=== PATIENT | male | born 1975 | race Caucasian/White ===

== ENCOUNTER 2016-11-26 12:21 | Emergency (ER) | payer OTHER ==
--- NOTE | 2016-11-26 14:40 | DIAGNOSTIC IMAGING REPORT ---
PROCEDURE: XR RIBS UNILAT W/PA CHEST-LT INDICATION: PAIN TECHNIQUE: Two views of the left ribs with single PA view chest. COMPARISON: None. FINDINGS: LEFT RIBS: There is a fracture of the left seventh rib. No suspicious rib lesions. CHEST: Normal cardiomediastinal contour. Clear lungs without pleural effusion, pneumothorax, or contusion. The other visible osseous structures are intact. IMPRESSION: 1. Fracture of the left seventh rib. 2. No pneumothorax. 3. Results were called to Toshia Brewster at 02:40 p.m.
--- NOTE | 2016-11-26 14:47 | ED NURSING NOTES ---
Clinical Report - Nurses [facility] [address] [place] [address] 11/26/2016 12:22 Patient: DILEEP JIMENEZ TRIAGE Triage time 12:31. Acuity: LEVEL 5. Chief Complaint: (fractured rib from coughing, was seen at [facility], pt states they wouldn't give him pain medicine for it). Alert. --12:37 Sona Patel R.N. 12:31 11/26/16. BP: 147/99. HR: 99. RR: 18. O2 saturation: 99%. Temp: 98.1 F. Pain level now: 06/13. --12:37 Sona Patel R.N. Weight: 86.1 kg stated. Height/Length: 67 inches Per Patient. BMI: 29.8. --12:33 Sona Patel R.N. Medications Aubagio Oral (Tablet 14 mg) 1 tablet, day. CarBAMazepine Oral 600 mg, 2x a day. --12:34 Sona Patel R.N. Cymbalta Oral 90mg, Daily. Lyrica Oral (Capsule 300 mg) 1 capsule, daily. OLANZapine Oral 15 mg, daily. PriLOSEC Oral 20 mg, daily. --12:34 Sona Patel R.N. Allergies PredniSONE. Vicodin.(angioedema) --12:34 Sona Patel R.N. History Arrived by private vehicle. Primary physician (none now, pt states he won't go back to [facility] ). This occurred (3 - 4 days ago). 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 PAST MEDICAL HX: Tetanus status: up-to-date. SOCIAL HX: Light tobacco smoker (cigarette)- less than 1/2 a pack per day. History of drug use: marijuana. No alcohol use. SELF HARM ASSESSMENT: A self harm assessment was performed. The patient answered "yes" to the question "Do you have thoughts of harming or killing yourself?". (if pain is not relieved, pt states he will kill himself to not be in pain). FUNCTIONAL ASSESSMENT: Functional assessment: no impairments noted. LEARNING NEEDS ASSESSMENT: The learning needs assessment revealed no barriers. --12:37 Sona Patel R.N. PROBLEMS: Hemorrhoids. Rectal Bleed. Suicide Attempt. Multiple Sclerosis. Seizure Disorder. Vision Problems. Anxiety Reaction. Chronic Headache. Headache. Dental Pain. Mental Illness. Vertigo. Depression. Suicidal Ideation. Substance Abuse. PTSD. Bipolar Disorder. ADHD - Attention Deficit Hyperactivity Disorder. TMJ Syndrome. Back Pain. Neck Pain. --12:35 Sona Patel R.N. Adverse Drug Reaction [RuleOut]. --12:35 Sona Patel R.N. ADDITIONAL SURGERIES: Appendectomy. Cholecystectomy. Knee Surgery. Vasectomy. --12:35 Sona Patel R.N. Interventions ID band on patient. To room. --12:37 Sona Patel R.N. PHYSICAL ASSESSMENT 12:38 11/26/16. GENERAL / NEURO / PSYCH: Alert. Oriented X 4. --12:38 Sona Patel R.N. GENERAL / NEURO / PSYCH: Appears anxious. --12:39 Sona Patel R.N. NURSING PROGRESS NOTES 12:38 11/26/16. Patient identifiers checked. Call light placed in reach. Bed placed in lowest position. Patient ready for evaluation. --12:38 Sona Patel R.N. 13:56 11/26/2016 Toradol (Ketorolac Tromethamine) IM 60 mg given. Given in the left gluteus betsy. Confirmed 5 rights. --14:06 Sona Patel R.N. Patient walked to radiology with [employer]. --14:06 Sona Patel R.N. DISPOSITION / DISCHARGE Departure time: 1600. Condition at departure: improved. No learning barriers present. Discharge instructions provided and reviewed with the patient. Reviewed medication(s) information. Prescription(s) given to the patient. Reviewed referral to family practice for followup. Verbalized understanding. Written instructions provided. The patient was discharged home. He left the Emergency Department ambulatory and via private vehicle. --16:40 Sona Patel R.N. 16:00 11/26/16. BP: 138/90. HR: 81. RR: 18. O2 saturation: 98%. Pain level now: 12/11. --16:40 Sona Patel R.N. Locked/Released at 11/26/2016 16:40 by Sona Patel R.N.
--- NOTE | 2016-11-26 14:47 | ED ORDER SUMMARY ---
..... Patient: DILEEP JIMENEZ OrderSheet [facility] VisitID: [id number] [address] [place] [address] 41y, M Registration Date/Time: 11/26/2016 ORDER SHEET Weight: 86.1 kg (stated) Allergies: PredniSONE, Vicodin GENERAL ORDERS: Ribs Unilat w PA Chest Left Urgent (13:55 11/26/2016 HBivens A.R.N.P.) (Ack 14:01 Adolfo) (14:06 LSullivan R.N.) MEDICATION ORDERS: Toradol IM 60 mg (NOW) (13:55 11/26/2016 HBivens A.R.N.P.) (14:06 LSullivan R.N.) IV FLUIDS: ORDER SHEET NOTES: [Electronically signed by Toshia BrewsterRVeronicaN.PVeronica (16:33 11/26/2016)] [Electronically signed by Sona Patel R.N. (16:40 11/26/2016)] [Electronically locked/signed by Sona Patel R.N. (16:40 11/26/2016)]
--- NOTE | 2016-11-26 14:47 | ED ORDER SUMMARY ---
..... Patient: DILEEP JIMENEZ OrderSheet [facility] VisitID: [id number] [address] [place] [address] 41y, M Registration Date/Time: 11/26/2016 ORDER SHEET Weight: 86.1 kg (stated) Allergies: PredniSONE, Vicodin GENERAL ORDERS: Ribs Unilat w PA Chest Left Urgent (13:55 11/26/2016 HBivens A.R.N.P.) (Ack 14:01 Adolfo) (14:06 LSullivan R.N.) MEDICATION ORDERS: Toradol IM 60 mg (NOW) (13:55 11/26/2016 HBivens A.R.N.P.) (14:06 LSullivan R.N.) IV FLUIDS: ORDER SHEET NOTES: [Electronically signed by Toshia BrewsterRVeronicaN.PVeronica (16:33 11/26/2016)] [Electronically signed by Sona Patel R.N. (16:40 11/26/2016)] [Electronically locked/signed by Sona Patel R.N. (16:40 11/26/2016)]
--- NOTE | 2016-11-26 14:47 | ED NURSING NOTES ---
Clinical Report - Nurses [facility] [address] [place] [address] 11/26/2016 12:22 Patient: DILEEP JIMENEZ TRIAGE Triage time 12:31. Acuity: LEVEL 5. Chief Complaint: (fractured rib from coughing, was seen at [facility], pt states they wouldn't give him pain medicine for it). Alert. --12:37 Sona Patel R.N. 12:31 11/26/16. BP: 147/99. HR: 99. RR: 18. O2 saturation: 99%. Temp: 98.1 F. Pain level now: 06/13. --12:37 Sona Patel R.N. Weight: 86.1 kg stated. Height/Length: 67 inches Per Patient. BMI: 29.8. --12:33 Sona Patel R.N. Medications Aubagio Oral (Tablet 14 mg) 1 tablet, day. CarBAMazepine Oral 600 mg, 2x a day. --12:34 Sona Patel R.N. Cymbalta Oral 90mg, Daily. Lyrica Oral (Capsule 300 mg) 1 capsule, daily. OLANZapine Oral 15 mg, daily. PriLOSEC Oral 20 mg, daily. --12:34 Sona Patel R.N. Allergies PredniSONE. Vicodin.(angioedema) --12:34 Sona Patel R.N. History Arrived by private vehicle. Primary physician (none now, pt states he won't go back to [facility] ). This occurred (3 - 4 days ago). 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 PAST MEDICAL HX: Tetanus status: up-to-date. SOCIAL HX: Light tobacco smoker (cigarette)- less than 1/2 a pack per day. History of drug use: marijuana. No alcohol use. SELF HARM ASSESSMENT: A self harm assessment was performed. The patient answered "yes" to the question "Do you have thoughts of harming or killing yourself?". (if pain is not relieved, pt states he will kill himself to not be in pain). FUNCTIONAL ASSESSMENT: Functional assessment: no impairments noted. LEARNING NEEDS ASSESSMENT: The learning needs assessment revealed no barriers. --12:37 Sona Patel R.N. PROBLEMS: Hemorrhoids. Rectal Bleed. Suicide Attempt. Multiple Sclerosis. Seizure Disorder. Vision Problems. Anxiety Reaction. Chronic Headache. Headache. Dental Pain. Mental Illness. Vertigo. Depression. Suicidal Ideation. Substance Abuse. PTSD. Bipolar Disorder. ADHD - Attention Deficit Hyperactivity Disorder. TMJ Syndrome. Back Pain. Neck Pain. --12:35 Sona Patel R.N. Adverse Drug Reaction [RuleOut]. --12:35 Sona Patel R.N. ADDITIONAL SURGERIES: Appendectomy. Cholecystectomy. Knee Surgery. Vasectomy. --12:35 Sona Patel R.N. Interventions ID band on patient. To room. --12:37 Sona Patel R.N. PHYSICAL ASSESSMENT 12:38 11/26/16. GENERAL / NEURO / PSYCH: Alert. Oriented X 4. --12:38 Sona Patel R.N. GENERAL / NEURO / PSYCH: Appears anxious. --12:39 Sona Patel R.N. NURSING PROGRESS NOTES 12:38 11/26/16. Patient identifiers checked. Call light placed in reach. Bed placed in lowest position. Patient ready for evaluation. --12:38 Sona Patel R.N. 13:56 11/26/2016 Toradol (Ketorolac Tromethamine) IM 60 mg given. Given in the left gluteus betsy. Confirmed 5 rights. --14:06 Sona Patel R.N. Patient walked to radiology with [employer]. --14:06 Sona Patel R.N. DISPOSITION / DISCHARGE Departure time: 1600. Condition at departure: improved. No learning barriers present. Discharge instructions provided and reviewed with the patient. Reviewed medication(s) information. Prescription(s) given to the patient. Reviewed referral to family practice for followup. Verbalized understanding. Written instructions provided. The patient was discharged home. He left the Emergency Department ambulatory and via private vehicle. --16:40 Sona Patel R.N. 16:00 11/26/16. BP: 138/90. HR: 81. RR: 18. O2 saturation: 98%. Pain level now: 12/11. --16:40 Sona Patel R.N. Locked/Released at 11/26/2016 16:40 by Sona Patel R.N.
--- NOTE | 2016-11-26 14:47 | ED CLINICAL REPORT ---
Clinical Report - Physicians/Mid Levels [facility] [address] [place] [address] 11/26/2016 12:22 Patient: DILEEP JIMENEZ Time Seen: 13:45; initial patient contact, initial documentation, patient care assumed. Arrived- By private vehicle. Historian- patient. HISTORY OF PRESENT ILLNESS Chief Complaint: Injury to CHEST. Location of injuries- chest. The injury occurred about 3 - 4 days ago. 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 Occurred at home. The patient complains of severe pain. REVIEW OF SYSTEMS The patient has had chest pain and a cough. No difficulty breathing. All systems otherwise negative, except as recorded above. PAST HISTORY See nurses notes. PROBLEMS: Hemorrhoids. Rectal Bleed. Suicide Attempt. Multiple Sclerosis. Seizure Disorder. Vision Problems. Anxiety Reaction. Chronic Headache. Headache. Dental Pain. Mental Illness. Vertigo. Depression. Suicidal Ideation. Substance Abuse. PTSD. Bipolar Disorder. ADHD - Attention Deficit Hyperactivity Disorder. TMJ Syndrome. Back Pain. Neck Pain. --12:35 Sona Patel R.N. Adverse Drug Reaction [RuleOut]. --12:35 Sona Patel R.N. ADDITIONAL SURGERIES: Appendectomy. Cholecystectomy. Knee Surgery. Vasectomy. --12:35 Sona Patel R.N. SOCIAL HISTORY Light tobacco smoker. History of occasional drug use: marijuana. No alcohol use. No recent travel. Is a local resident. FAMILY HISTORY No significant family medical history. ADDITIONAL NOTES The nursing notes have been reviewed with agreement regarding the chief complaint, HPI, ROS, PMH and patient medications and allergies. PHYSICAL EXAM Vital Signs: 11/26/2016 12:31 BP: 147/99. HR: 99. RR: 18. O2 saturation: 99%. Temp: 98.1 F. Pain level now: 9/10. Have been reviewed as abnormal and appear to be correct. Hypertensive. Heart rate normal. Respiratory rate normal. Temperature normal. Oxygen saturation normal. Appearance: Alert. Oriented X3. No acute distress. Head: Head non-tender. No swelling of head. Eyes: Pupils equal, round and reactive to light. EOM intact. ENT: No dental injury. Pharynx normal. Neck: Painless ROM. Non-tender. Respiratory: Chest tender. Chest wall injury: moderate tenderness located in the lower, left and anterior chest. No swelling. No laceration. No abrasion. No ecchymosis. No deformity consistent with a flail segment. No injury to the costal cartilage, sternum, manubrium or xiphoid. No splinting present. No paradoxical movement. Breath sounds normal. LABS, X-RAYS, AND EKG X-Rays: Rib series. The X-rays were interpreted by the radiologist and contemporaneously by me and discussed with the radiologist. Interpretation time: 14:41. PROGRESS AND PROCEDURES Course of Care: 14:01 11/26/16. pt has mikhail recommending no narcs or benzos for chronic conditions, limit imaging, several narcs prescribed, including lyrica, tramadol, xanax, methadone and more, and #11 er visits, see report for full details pt agreed to my tx plan of nsaids, xrays and injection here, pt compliant and agreeable at current moment but still mad at clinic issue. Patient counseled in person regarding the patient's stable condition, test results and diagnosis. 14:41. Differential Diagnosis: Other possible considerations: substance abuse, pscyh, rib fx, chest contusion, pneumo, bronchitis, pneumonia, costachondritis, pleurisy. Above considerations are based on history, physical exam and X-Ray data. Differential diagnosis was discussed with patient. Disposition: Discharged home in good and improved condition (14:47). Condition: good and stable. CLINICAL IMPRESSION Single left rib fracture. INSTRUCTIONS Warnings: GENERAL WARNINGS: Return or contact your physician immediately if your condition worsens or changes unexpectedly, if not improving as expected, or if other problems arise. trouble breathing. Prescription Medications: Vicoprofen 7.5/200 mg: take 1 tablet orally every 6 hours. Dispense five (5). No refill. Follow-up: Follow up with your doctor in about one week even if well. Call for an appointment. Summary of care provided to patient. Screening today revealed the patient's blood pressure to be in the hypertensive range. The patient should follow up with a primary care provider for blood pressure management. Understanding of the discharge instructions verbalized by patient. (Electronically signed by Toshia Brewster A.R.N.P. 11/26/2016 16:33)
--- NOTE | 2016-11-26 14:47 | ED CLINICAL REPORT ---
Clinical Report - Physicians/Mid Levels [facility] [address] [place] [address] 11/26/2016 12:22 Patient: DILEEP JIMENEZ Time Seen: 13:45; initial patient contact, initial documentation, patient care assumed. Arrived- By private vehicle. Historian- patient. HISTORY OF PRESENT ILLNESS Chief Complaint: Injury to CHEST. Location of injuries- chest. The injury occurred about 3 - 4 days ago. 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 Occurred at home. The patient complains of severe pain. REVIEW OF SYSTEMS The patient has had chest pain and a cough. No difficulty breathing. All systems otherwise negative, except as recorded above. PAST HISTORY See nurses notes. PROBLEMS: Hemorrhoids. Rectal Bleed. Suicide Attempt. Multiple Sclerosis. Seizure Disorder. Vision Problems. Anxiety Reaction. Chronic Headache. Headache. Dental Pain. Mental Illness. Vertigo. Depression. Suicidal Ideation. Substance Abuse. PTSD. Bipolar Disorder. ADHD - Attention Deficit Hyperactivity Disorder. TMJ Syndrome. Back Pain. Neck Pain. --12:35 Sona Patel R.N. Adverse Drug Reaction [RuleOut]. --12:35 Sona Patel R.N. ADDITIONAL SURGERIES: Appendectomy. Cholecystectomy. Knee Surgery. Vasectomy. --12:35 Sona Patel R.N. SOCIAL HISTORY Light tobacco smoker. History of occasional drug use: marijuana. No alcohol use. No recent travel. Is a local resident. FAMILY HISTORY No significant family medical history. ADDITIONAL NOTES The nursing notes have been reviewed with agreement regarding the chief complaint, HPI, ROS, PMH and patient medications and allergies. PHYSICAL EXAM Vital Signs: 11/26/2016 12:31 BP: 147/99. HR: 99. RR: 18. O2 saturation: 99%. Temp: 98.1 F. Pain level now: 9/10. Have been reviewed as abnormal and appear to be correct. Hypertensive. Heart rate normal. Respiratory rate normal. Temperature normal. Oxygen saturation normal. Appearance: Alert. Oriented X3. No acute distress. Head: Head non-tender. No swelling of head. Eyes: Pupils equal, round and reactive to light. EOM intact. ENT: No dental injury. Pharynx normal. Neck: Painless ROM. Non-tender. Respiratory: Chest tender. Chest wall injury: moderate tenderness located in the lower, left and anterior chest. No swelling. No laceration. No abrasion. No ecchymosis. No deformity consistent with a flail segment. No injury to the costal cartilage, sternum, manubrium or xiphoid. No splinting present. No paradoxical movement. Breath sounds normal. LABS, X-RAYS, AND EKG X-Rays: Rib series. The X-rays were interpreted by the radiologist and contemporaneously by me and discussed with the radiologist. Interpretation time: 14:41. PROGRESS AND PROCEDURES Course of Care: 14:01 11/26/16. pt has mikhail recommending no narcs or benzos for chronic conditions, limit imaging, several narcs prescribed, including lyrica, tramadol, xanax, methadone and more, and #11 er visits, see report for full details pt agreed to my tx plan of nsaids, xrays and injection here, pt compliant and agreeable at current moment but still mad at clinic issue. Patient counseled in person regarding the patient's stable condition, test results and diagnosis. 14:41. Differential Diagnosis: Other possible considerations: substance abuse, pscyh, rib fx, chest contusion, pneumo, bronchitis, pneumonia, costachondritis, pleurisy. Above considerations are based on history, physical exam and X-Ray data. Differential diagnosis was discussed with patient. Disposition: Discharged home in good and improved condition (14:47). Condition: good and stable. CLINICAL IMPRESSION Single left rib fracture. INSTRUCTIONS Warnings: GENERAL WARNINGS: Return or contact your physician immediately if your condition worsens or changes unexpectedly, if not improving as expected, or if other problems arise. trouble breathing. Prescription Medications: Vicoprofen 7.5/200 mg: take 1 tablet orally every 6 hours. Dispense five (5). No refill. Follow-up: Follow up with your doctor in about one week even if well. Call for an appointment. Summary of care provided to patient. Screening today revealed the patient's blood pressure to be in the hypertensive range. The patient should follow up with a primary care provider for blood pressure management. Understanding of the discharge instructions verbalized by patient. (Electronically signed by Toshia Brewster A.R.N.P. 11/26/2016 16:33)
--- NOTE | 2016-11-26 16:40 | ED MAR SUMMARY ---
..... Medication Administration Record [facility] [address] [place] [address] Patient: DILEEP JIMENEZ Visit ID: [id number] 41y, M Weight: 86.1 kg Height/Length: 67 in BMI: 29.8 ALLERGIES: PredniSONE, Vicodin Given 13:56 11/26/2016 Sona Patel R.N. Medication Administered: TORADOL [IM] (KETOROLAC TROMETHAMINE), Dose: 60 mg IM. Medication Ordered: Toradol IM 60 mg (NOW).
--- NOTE | 2016-11-26 16:40 | ED DISCHARGE INSTRUCTIONS ---
Patient: DILEEP JIMENEZ General Instructions [facility] VisitID: [id number] [place] [address] 41y, M Registration Date/Time: 11/26/2016 Single left rib fracture. INSTRUCTIONS Warnings: GENERAL WARNINGS: Return or contact your physician immediately if your condition worsens or changes unexpectedly, if not improving as expected, or if other problems arise. trouble breathing. Prescription Medications: Vicoprofen 7.5/200 mg: take 1 tablet orally every 6 hours. Dispense five (5). No refill. Follow-up: Follow up with your doctor in about one week even if well. Call for an appointment. Summary of care provided to patient. Screening today revealed the patient's blood pressure to be in the hypertensive range. The patient should follow up with a primary care provider for blood pressure management. Understanding of the discharge instructions verbalized by patient. ADDITIONAL INFORMATION Rib Fracture You have a fracture (break) of one or more ribs. Rib fractures do not require a cast like other bones. They will heal by themselves in about 4-6 weeks. The first 3-4 weeks will be the most painful because deep breathing, coughing or changing position from sitting to lying down, may cause the broken ends to move slightly. Home Care: Rest. You should not be doing any heavy lifting or strenuous exertion until the pain goes away. Because it hurts to breathe when you have a broken rib, there is risk of getting pneumonia from poor airflow through your lungs. To prevent this: Take four very deep breaths at least four times a day (exhale through pursed lips as if you are blowing up a balloon). If an "incentive spirometer" (breathing exercise device) was given to you, use it at least four times a day, or as directed. Apply an ice pack (ice cubes in a plastic bag, wrapped in a towel) over the injured area for 20 minutes every 1-2 hours the first day. Continue with ice packs 3-4 times a day for the next two days, then as needed for the relief of pain and swelling. You may use acetaminophen (Tylenol) or ibuprofen (Motrin, Advil) to control pain, unless another pain medicine was prescribed. [NOTE: If you have chronic liver or kidney disease or ever had a stomach ulcer or GI bleeding, talk with your doctor before using these medicines.] If your pain is not controlled by the treatment given, contact your doctor. Sometimes a stronger pain medicine may be needed. A nerve block (numbing the nerve between the ribs) can be performed in case of severe pain. Follow Up with your doctor during the next week, or as advised. Rarely, a broken rib will cause complications within the first few days that may not be evident during your initial exam (such as, collapsed lung, bleeding around the lung or into the abdomen, or pneumonia). Therefore, watch for the signs below. [NOTE: If x-rays were taken, they will be reviewed by a radiologist. You will be notified of any new findings that may affect your care.] Get Prompt Medical Attention if any of the following occur: Shortness of breath Increasing chest pain with breathing Dizziness, weakness or fainting New or worsening abdominal pain Fever of 100.4F (38C) or higher, or as directed by your healthcare provider Congested cough Drug Abuse: Prescribed Narcotics& Sedatives Prolonged or overuse of drugs prescribed for pain or sedation may lead to addictionor dependence. Physical dependence leads to drug withdrawal symptoms if you stop taking the drug. With psychological dependence you feel a strong craving for the drug. You may be unable to stop using the drug even though you want to stop. These problems can occur even when the medication is taken at the prescribed dose. Drug addiction places you, your family, and your job at risk. Arrest, conviction and intermediate sentencing are possible. There is increased danger of accidental injuries to yourself or others while you are under the influence of the drug. from an unintentional overdose of the drug is one of the greatest risks you face. Get Care Admit you have a drug problem to yourself and your family and close friends. Tell your prescribing doctors about this problem so they can help you by adjusting the type and amount of medications that are prescribed in the future. It is best to receive all prescriptions for addictive medications from a single physician who can monitor what is being prescribed. Ask your doctor for a referral for professional help. This could be individual psychotherapy or counseling or a drug treatment program (outpatient or residential). Join a self-help group for drug abuse. Avoid friends who abuse drugs themselves or tempt you to continue abusing drugs. Do not combine pain medicines and sedatives together or with alcohol. Doing so can cause oversedation, coma, and stop your breathing. Follow Up with your doctor or as advised by our staff. Contact one of the resources below for help. National [place] on Alcoholism and Drug Dependencewww.ncadd.org Narcotics Anonymouswww.na.org National Alcohol and Substance Abuse Information Center (for referral to treatment programs) 620.160.6880 www.addictioncareoptions.com Get Prompt Medical Attention if any of the following occur: Excess drowsiness Slow breathing (under 8 breaths per minute) Agitation, anxiety, unable to sleep Unintended weight loss Seizure Chest pain or shortness of breath Fever of 100.4F (38C) or higher, or as directed by your healthcare provider Cough with colored sputum You have been given the following additional information: Fracture, Rib Drug Abuse: Prescribed Narcotics And Sedatives (Electronically signed by Toshia Brewster A.R.N.P. 11/26/2016 16:33)
--- NOTE | 2016-11-26 16:40 | ED MAR SUMMARY ---
..... Medication Administration Record [facility] [address] [place] [address] Patient: DILEEP JIMENEZ Visit ID: [id number] 41y, M Weight: 86.1 kg Height/Length: 67 in BMI: 29.8 ALLERGIES: PredniSONE, Vicodin Given 13:56 11/26/2016 Sona Patel R.N. Medication Administered: TORADOL [IM] (KETOROLAC TROMETHAMINE), Dose: 60 mg IM. Medication Ordered: Toradol IM 60 mg (NOW).
--- NOTE | 2016-11-26 16:40 | ED MED RECONCILIATION SUMMARY ---
Patient: DILEEP JIMENEZ Medication Reconciliation Report [facility] VisitID: [id number] [address] [place] [address] 41y, M Registration Date/Time: 11/26/2016 Weight: 86.1 kg Height/Length: 67 in. BMI: 29.8 ALLERGIES: PredniSONE, Vicodin The patient's Home Medications are listed below: THE FOLLOWING MEDICATIONS NEED TO BE RECONCILED: Aubagio Oral (14 mg) 1 tablet, day CarBAMazepine Oral 600 mg, 2x a day Cymbalta Oral 90mg, Daily Lyrica Oral (300 mg) 1 capsule, daily OLANZapine Oral 15 mg, daily PriLOSEC Oral 20 mg, daily The source(s) of the original Home Medication information: Not obtained. The following Medications were given to the patient in the Emergency Department: Toradol [IM] IM 60 mg, administered: 11/26/2016 1:56:00 PM The following Medications were prescribed to the patient: Vicoprofen 7.5/200 mg: take 1 tablet orally every 6 hours. Dispense five (5). No refill. -- Toshia Brewster A.R.N.P.
--- NOTE | 2016-11-26 16:40 | ED MED RECONCILIATION SUMMARY ---
Patient: DILEEP JIMENEZ Medication Reconciliation Report VisitID: [id number] [address] [place] [address] 41y, M Registration Date/Time: 11/26/2016 Weight: 86.1 kg Height/Length: 67 in. BMI: 29.8 ALLERGIES: PredniSONE, Vicodin The patient's Home Medications are listed below: THE FOLLOWING MEDICATIONS NEED TO BE RECONCILED: Aubagio Oral (14 mg) 1 tablet, day CarBAMazepine Oral 600 mg, 2x a day Cymbalta Oral 90mg, Daily Lyrica Oral (300 mg) 1 capsule, daily OLANZapine Oral 15 mg, daily PriLOSEC Oral 20 mg, daily The source(s) of the original Home Medication information: Not obtained. The following Medications were given to the patient in the Emergency Department: Toradol [IM] IM 60 mg, administered: 11/26/2016 1:56:00 PM The following Medications were prescribed to the patient: Vicoprofen 7.5/200 mg: take 1 tablet orally every 6 hours. Dispense five (5). No refill. -- Toshia Brewster A.R.N.P.
== END 2016-11-26 16:00 | disposition home or self-care (01) ==
LOC: ED SRH 12:21
DX: S22.32XA Fracture of one rib, left side, initial encounter for closed fracture (principal); X50.3XXA Overexertion from repetitive movements, initial encounter; Y93.9 Activity, unspecified; Y92.009 Unspecified place in unspecified non-institutional (private) residence as the place of occurrence of the external cause; Y99.9 Unspecified external cause status; Z72.0 Tobacco use

== ENCOUNTER 2016-12-23 13:45 | Emergency (ER) | payer OTHER ==
--- NOTE | 2016-12-23 14:58 | DIAGNOSTIC IMAGING REPORT ---
PROCEDURE: XR RIBS UNILAT W/PA CHEST-RT INDICATION: PAIN TECHNIQUE: Two views of the right ribs with single PA view chest. COMPARISON: None. FINDINGS: RIGHT RIBS: No displaced rib fractures. No suspicious rib lesions. CHEST: Normal cardiomediastinal contour. Clear lungs without pleural effusion, pneumothorax, or contusion. The other visible osseous structures are intact. IMPRESSION: 1. Intact right ribs. 2. Normal chest without radiographic evidence of trauma.
--- NOTE | 2016-12-23 15:04 | ED ORDER SUMMARY ---
..... Patient: DILEEP JIMENEZ OrderSheet [facility] VisitID: [id number] [address] [place] [address] 41y, M Registration Date/Time: 12/23/2016 ORDER SHEET Weight: 87.0 kg (stated) Allergies: PredniSONE GENERAL ORDERS: Ribs Unilat w PA Chest Right Urgent (14:28 12/23/2016 Antione Simpson) (Ack 14:29 Jake) (14:46 Pamela R.N.) MEDICATION ORDERS: Toradol IM 60 mg (NOW) (14:29 12/23/2016 Antione Simpson) (Ack 14:30 Pamela R.N.) (14:34 Pamela R.N.) IV FLUIDS: ORDER SHEET NOTES: [Electronically signed by Dread Khalil Dr. (15:28 12/23/2016)] [Electronically signed by Irving Martinez R.N. (16:12/23/2016)] [Electronically locked/signed by Irving Martinez R.N. (16:12/23/2016)]
--- NOTE | 2016-12-23 15:04 | ED NURSING NOTES ---
Clinical Report - Nurses [facility] [address] [place] [address] 12/23/2016 13:45 Patient: DILEEP JIMENEZ TRIAGE Triage time 13:54. Acuity: LEVEL 4. Chief Complaint: (RIB PAIN). 13:54 12/23/16. 13:54 12/23/16. Alert. No acute distress. ( Pt went to walk in [facility] yesterday, dx with "a broken rib". Pt followed up today at 1200, and was not given pain meds and is in 07/13 pain now.). NADER COMA SCORE: Nader Coma Scale: 15- eyes open spontaneously (4); best verbal response- oriented x 4 (5); best motor response- obeys commands (6). --13:59 Irving Martinez R.N. 13:54 12/23/16. BP: 135/88. HR: 95. RR: 18. O2 saturation: 99% on room air. Temp: 98 F (oral). Pain level now: 07/13. --13:59 Irving Martinez R.N. Weight: 87 kg stated. Height/Length: 67 inches Per Patient. BMI: 30.1. --13:56 Irving Martinez R.N. Medications Aubagio Oral (Tablet 14 mg) 1 tablet, day. CarBAMazepine Oral 600 mg, 2x a day. Cymbalta Oral 90mg, Daily. Lyrica Oral (Capsule 300 mg) 1 capsule, daily. OLANZapine Oral 15 mg, daily. PriLOSEC Oral 20 mg, daily. --13:58 Irving Martinez R.N. Medication/allergy information source: the patient. --13:59 Irving Martinez R.N. Allergies PredniSONE. --13:58 Irving Martinez R.N. History Arrived by private vehicle. Historian: patient. Accompanied by family. Primary physician (Beatris Cruz). 13:54 12/23/16. ( 2 days ago). Treatment PLUG MAKER: (Anti-inflammatory). PAST MEDICAL HX: Immunizations: up-to-date. SOCIAL HX: Current every day light tobacco smoker (cigarette)- less than 1/2 a pack per day. History of heavy drug use: marijuana. Recently used drugs just prior to arrival. No alcohol use. No infectious disease exposure. ABUSE ASSESSMENT: No report of abuse. FALL RISK ASSESSMENT: Fall risk assessment completed. No fall risk identified. NUTRITIONAL RISK ASSESSMENT: The nutritional risk assessment revealed no deficiencies. FUNCTIONAL ASSESSMENT: Functional assessment: no impairments noted. LEARNING NEEDS ASSESSMENT: The learning needs assessment revealed no barriers. SKIN INTEGRITY ASSESSMENT: Skin integrity risk assessment completed. No skin integrity risk identified. --13:59 Irving Martinez R.N. PROBLEMS: Rib Fracture. Hemorrhoids. Rectal Bleed. Suicide Attempt. Multiple Sclerosis. Seizure Disorder. Vision Problems. Anxiety Reaction. Chronic Headache. Headache. Dental Pain. Mental Illness. Immunizations. Vertigo. Depression. Suicidal Ideation. Substance Abuse. PTSD. Bipolar Disorder. ADHD - Attention Deficit Hyperactivity Disorder. TMJ Syndrome. Back Pain. Neck Pain. --13:59 Irving Martinez R.N. ADDITIONAL SURGERIES: Appendectomy. Cholecystectomy. Knee Surgery. Vasectomy. --13:59 Irving Martinez R.N. Assessment 13:54 12/23/16. --13:59 Irving Martinez R.N. Interventions 13:54 12/23/16. 13:54 12/23/16. ID and allergy band on patient. To treatment room. --13:59 Irving Martinez R.N. PHYSICAL ASSESSMENT 13:59 12/23/16. GENERAL / NEURO / PSYCH: Alert. Oriented X 4. Appears in no acute distress. RESPIRATORY: Respirations not labored. CVS: Capillary refill less than 2 seconds. SKIN: Skin is warm and dry. --13:59 Irving Martinez R.N. NURSING PROGRESS NOTES 13:59 12/23/16. The plan of care for this patient has been created. Patient gowned. Head of bed elevated. Two patient identifiers checked. Call light placed in reach. Side rails up x 2. Bed placed in lowest position. Brakes of bed on. --13:59 Irving Martinez R.N. 13:59 12/23/16. Reassurance given. Patient ready for evaluation- chart flagged and notification provided. --13:59 Irving Martinez R.N. 14:33 12/23/2016 Toradol (Ketorolac Tromethamine) IM 60 mg given. Given in the left ventral gluteus. Allergies verified and confirmed 5 rights. --14:34 Irving Martinez R.N. 14:34 12/23/16. Patient walked to radiology with tech. --14:34 Irving Martinez R.N. 14:46 12/23/16. Patient walked back to ED from radiology. --14:46 Irving Martinez R.N. 14:55 12/23/16. Reassessment after medication administered. He has had no adverse reaction. Overall patient status is the same- he states feels the same. --14:55 Irving Martinez R.N. DISPOSITION / DISCHARGE 15:34 12/23/16. Condition at departure: improved. The goals identified in the patient's plan of care were met. ( Education completed about splinting techniques for rib pain as well as coughing and deep breathing). No learning barriers present. Discharge instructions provided and reviewed with piano assembler and the patient. Reviewed warnings. Reviewed medication(s). Treatments reviewed. Patient and piano assembler verbalized understanding. Written instructions provided in Turkish. The patient was discharged by the physician. He was discharged home and accompanied by piano assembler. He left the Emergency Department ambulatory and via private vehicle. Family Mediator driving. FALL RISK ASSESSMENT: Fall risk assessment completed. No fall risk identified. --15:34 Irving Martinez R.N. 15:32 12/23/16. BP: 144/62. HR: 77. RR: 12. O2 saturation: 99% on room air. Temp: 97.9 F (oral). Pain level now: 01/11. --15:34 Irving Martinez R.N. 15:34 12/23/16. Departure time: 15:34. --15:34 Irving Martinez R.N. 15:34 12/23/16. ( Pt advised to call [facility] to get appt scheduled for pain management (call today)). --15:34 Irving Martinez R.N. 16:08 12/23/16. ( Called and left message ([phone]) for pt as he left inhaler in room, placed inhaler in registration and informed registration tech.). --16:09 Irving Martinez R.N. Locked/Released at 12/23/2016 16:09 by Irving Martinez R.N.
--- NOTE | 2016-12-23 15:04 | ED CLINICAL REPORT ---
Clinical Report - Physicians/Mid Levels [facility] [address] [place] [address] 12/23/2016 13:45 Patient: DILEEP JIMENEZ Time Seen: 13:54; initial patient contact. Arrived- By private vehicle. Historian- patient. HISTORY OF PRESENT ILLNESS Chief Complaint: CHEST PAIN. This started yesterday. The patient cannot recall the circumstances at the onset. At its maximum, severity described as moderate. When seen in the E.D., severity described as moderate. Modifying factors- worsened by cough and deep breaths. Not relieved by anything. It is described as "pain" and well localized and it is described as located in the right chest area. No radiation. No nausea, vomiting, difficulty breathing or diaphoresis. No additional chest pain. (L occult Rib Fx's on the L from a month ago. Coughing spell yesterday and had acute R sided CP. Went to PMD told he had R sided rib Fx's and no pain Rx. H/O steroid use due to MS. DEXA is pending.). Similar symptoms previously: Several times. Recent medical care: The patient was seen recently in the office. REVIEW OF SYSTEMS No fever, chills, pedal edema, calf pain or fainting episodes. He has had a cough. All systems otherwise negative, except as recorded above. PAST HISTORY Rib Fracture. Hemorrhoids. Rectal Bleed. Suicide Attempt. Multiple Sclerosis. Seizure Disorder. Vision Problems. Anxiety Reaction. Chronic Headache. Headache. Dental Pain. Mental Illness. Immunizations. Vertigo. Depression. Suicidal Ideation. Substance Abuse. PTSD. Bipolar Disorder. ADHD - Attention Deficit Hyperactivity Disorder. TMJ Syndrome. Back Pain. Neck Pain. ADDITIONAL SURGERIES: Appendectomy. Cholecystectomy. Knee Surgery. Vasectomy. SOCIAL HISTORY Current every day smoker. History of drug use: marijuana. Recently used drugs just prior to arrival. Under influence in ED. No alcohol use. ADDITIONAL NOTES The nursing notes have been reviewed with agreement regarding the chief complaint, PMH and patient medications and allergies. PHYSICAL EXAM Vital Signs: 12/23/2016 13:54 BP: 135/88. HR: 95. RR: 18. O2 saturation: 99%. Temp: 98 F. Pain level now: 07/13. Have been reviewed as normal. Appearance: Alert. Oriented X3. No acute distress. Eyes: Eyes normal inspection. ENT: Pharynx normal. CVS: Normal heart rate and rhythm. Heart sounds normal. Respiratory: No respiratory distress. Chest pain reproducible with palpation of the chest wall and lateral ribs and with deep breathing (and palpation). Breath sounds normal. Skin: Normal skin color. Extremities: No lower extremity edema. Neuro: Oriented X 3. LABS, X-RAYS, AND EKG Sternum / Ribs X-rays: (1. Intact right ribs. 2. Normal chest without radiographic evidence of trauma.). Views: right ribs. PA of chest. Technique: good. The X-rays were independently viewed by me, interpreted by the radiologist and discussed with the radiologist. Prior films were not available for comparison. Interpretation time: 15:03. PROGRESS AND PROCEDURES Disposition: Discharged home in good and improved condition. Condition: good. INSTRUCTIONS Do not smoke. Seek medical help to quit smoking. Your Current Medications: CONTINUE TAKING THE FOLLOWING MEDICATIONS: Aubagio Oral : Tablet 14 mg, 1 tablet day. CarBAMazepine Oral : 600 mg 2x a day. Cymbalta Oral : 90mg Daily. Lyrica Oral : Capsule 300 mg, 1 capsule daily. OLANZapine Oral : 15 mg daily. PriLOSEC Oral : 20 mg daily. Prescription Medications: Diclofenac 50 mg tablets: take 1 tablet orally every 8 hours as needed for pain or stiffness. Dispense thirty (30). No refill. Follow-up: Follow up with your doctor in about two days. Call for an appointment. Screening today revealed the patient's blood pressure to be in the pre-hypertensive range. The patient should follow up with a primary care provider for blood pressure management. (Electronically signed by Dread Khalil Dr. 12/23/2016 15:28)
--- NOTE | 2016-12-23 15:04 | ED NURSING NOTES ---
Clinical Report - Nurses [facility] [address] [place] [address] 12/23/2016 13:45 Patient: DILEEP JIMENEZ TRIAGE Triage time 13:54. Acuity: LEVEL 4. Chief Complaint: (RIB PAIN). 13:54 12/23/16. 13:54 12/23/16. Alert. No acute distress. ( Pt went to walk in [facility] yesterday, dx with "a broken rib". Pt followed up today at 1200, and was not given pain meds and is in 07/13 pain now.). NADER COMA SCORE: Nader Coma Scale: 15- eyes open spontaneously (4); best verbal response- oriented x 4 (5); best motor response- obeys commands (6). --13:59 Irving Martinez R.N. 13:54 12/23/16. BP: 135/88. HR: 95. RR: 18. O2 saturation: 99% on room air. Temp: 98 F (oral). Pain level now: 07/13. --13:59 Irving Martinez R.N. Weight: 87 kg stated. Height/Length: 67 inches Per Patient. BMI: 30.1. --13:56 Irving Martinez R.N. Medications Aubagio Oral (Tablet 14 mg) 1 tablet, day. CarBAMazepine Oral 600 mg, 2x a day. Cymbalta Oral 90mg, Daily. Lyrica Oral (Capsule 300 mg) 1 capsule, daily. OLANZapine Oral 15 mg, daily. PriLOSEC Oral 20 mg, daily. --13:58 Irving Martinez R.N. Medication/allergy information source: the patient. --13:59 Irving Martinez R.N. Allergies PredniSONE. --13:58 Irving Martinez R.N. History Arrived by private vehicle. Historian: patient. Accompanied by family. Primary physician (Beatris Cruz). 13:54 12/23/16. ( 2 days ago). Treatment ROCK PICKER: (Anti-inflammatory). PAST MEDICAL HX: Immunizations: up-to-date. SOCIAL HX: Current every day light tobacco smoker (cigarette)- less than 1/2 a pack per day. History of heavy drug use: marijuana. Recently used drugs just prior to arrival. No alcohol use. No infectious disease exposure. ABUSE ASSESSMENT: No report of abuse. FALL RISK ASSESSMENT: Fall risk assessment completed. No fall risk identified. NUTRITIONAL RISK ASSESSMENT: The nutritional risk assessment revealed no deficiencies. FUNCTIONAL ASSESSMENT: Functional assessment: no impairments noted. LEARNING NEEDS ASSESSMENT: The learning needs assessment revealed no barriers. SKIN INTEGRITY ASSESSMENT: Skin integrity risk assessment completed. No skin integrity risk identified. --13:59 Irving Martinez R.N. PROBLEMS: Rib Fracture. Hemorrhoids. Rectal Bleed. Suicide Attempt. Multiple Sclerosis. Seizure Disorder. Vision Problems. Anxiety Reaction. Chronic Headache. Headache. Dental Pain. Mental Illness. Immunizations. Vertigo. Depression. Suicidal Ideation. Substance Abuse. PTSD. Bipolar Disorder. ADHD - Attention Deficit Hyperactivity Disorder. TMJ Syndrome. Back Pain. Neck Pain. --13:59 Irving Martinez R.N. ADDITIONAL SURGERIES: Appendectomy. Cholecystectomy. Knee Surgery. Vasectomy. --13:59 Irving Martinez R.N. Assessment 13:54 12/23/16. --13:59 Irving Martinez R.N. Interventions 13:54 12/23/16. 13:54 12/23/16. ID and allergy band on patient. To treatment room. --13:59 Irving Martinez R.N. PHYSICAL ASSESSMENT 13:59 12/23/16. GENERAL / NEURO / PSYCH: Alert. Oriented X 4. Appears in no acute distress. RESPIRATORY: Respirations not labored. CVS: Capillary refill less than 2 seconds. SKIN: Skin is warm and dry. --13:59 Irving Maritnez R.N. NURSING PROGRESS NOTES 13:59 12/23/16. The plan of care for this patient has been created. Patient gowned. Head of bed elevated. Two patient identifiers checked. Call light placed in reach. Side rails up x 2. Bed placed in lowest position. Brakes of bed on. --13:59 Irving Martinez R.N. 13:59 12/23/16. Reassurance given. Patient ready for evaluation- chart flagged and notification provided. --13:59 Irving Martinez R.N. 14:33 12/23/2016 Toradol (Ketorolac Tromethamine) IM 60 mg given. Given in the left ventral gluteus. Allergies verified and confirmed 5 rights. --14:34 Irving Martinez R.N. 14:34 12/23/16. Patient walked to radiology with tech. --14:34 Irving Martinez R.N. 14:46 12/23/16. Patient walked back to ED from radiology. --14:46 Irving Martinez R.N. 14:55 12/23/16. Reassessment after medication administered. He has had no adverse reaction. Overall patient status is the same- he states feels the same. --14:55 Irving Martinez R.N. DISPOSITION / DISCHARGE 15:34 12/23/16. Condition at departure: improved. The goals identified in the patient's plan of care were met. ( Education completed about splinting techniques for rib pain as well as coughing and deep breathing). No learning barriers present. Discharge instructions provided and reviewed with analyst microbiology lab and the patient. Reviewed warnings. Reviewed medication(s). Treatments reviewed. Patient and analyst microbiology lab verbalized understanding. Written instructions provided in [place]. The patient was discharged by the physician. He was discharged home and accompanied by analyst microbiology lab. He left the Emergency Department ambulatory and via private vehicle. Law Office Assistant driving. FALL RISK ASSESSMENT: Fall risk assessment completed. No fall risk identified. --15:34 Irving Martinez R.N. 15:32 12/23/16. BP: 144/62. HR: 77. RR: 12. O2 saturation: 99% on room air. Temp: 97.9 F (oral). Pain level now: 01/11. --15:34 Irving Martinez R.N. 15:34 12/23/16. Departure time: 15:34. --15:34 Irving Martinez R.N. 15:34 12/23/16. ( Pt advised to call [facility] to get appt scheduled for pain management (call today)). --15:34 Irving Martinez R.N. 16:08 12/23/16. ( Called and left message ([phone]) for pt as he left inhaler in room, placed inhaler in registration and informed registration tech.). --16:09 Irving Martinez R.N. Locked/Released at 12/23/2016 16:09 by Irving Martinez R.N.
--- NOTE | 2016-12-23 15:04 | ED ORDER SUMMARY ---
..... Patient: DILEEP JIMENEZ OrderSheet [facility] VisitID: [id number] [address] [place] [address] 41y, M Registration Date/Time: 12/23/2016 ORDER SHEET Weight: 87.0 kg (stated) Allergies: PredniSONE GENERAL ORDERS: Ribs Unilat w PA Chest Right Urgent (14:28 12/23/2016 Antione Simpson) (Ack 14:29 Jake) (14:46 Pamela R.N.) MEDICATION ORDERS: Toradol IM 60 mg (NOW) (14:29 12/23/2016 Antione Simpson) (Ack 14:30 Pamela R.N.) (14:34 Pamela R.N.) IV FLUIDS: ORDER SHEET NOTES: [Electronically signed by Dread Khalil Dr. (15:28 12/23/2016)] [Electronically signed by Irving Martinez R.N. (16:12/23/2016)] [Electronically locked/signed by Irving Martinez R.N. (16:12/23/2016)]
--- NOTE | 2016-12-23 16:09 | ED DISCHARGE INSTRUCTIONS ---
Patient: DILEEP JIMENEZ General Instructions [facility] VisitID: [id number] [place] [address] 41y, M Registration Date/Time: 12/23/2016 INSTRUCTIONS Do not smoke. Seek medical help to quit smoking. Your Current Medications: CONTINUE TAKING THE FOLLOWING MEDICATIONS: Aubagio Oral : Tablet 14 mg, 1 tablet day. CarBAMazepine Oral : 600 mg 2x a day. Cymbalta Oral : 90mg Daily. Lyrica Oral : Capsule 300 mg, 1 capsule daily. OLANZapine Oral : 15 mg daily. PriLOSEC Oral : 20 mg daily. Prescription Medications: Diclofenac 50 mg tablets: take 1 tablet orally every 8 hours as needed for pain or stiffness. Dispense thirty (30). No refill. Follow-up: Follow up with your doctor in about two days. Call for an appointment. Screening today revealed the patient's blood pressure to be in the pre-hypertensive range. The patient should follow up with a primary care provider for blood pressure management. ADDITIONAL INFORMATION How To Quit Smoking Smoking is one of the hardest habits to break. About half of all those who have ever smoked have been able to quit, and most of those (about 70%) who still smoke want to quit. Here are some of the best ways to stop smoking. Keep Trying: It takes most smokers about 8 tries before they are finally able to fully quit. So, the more often you try and fail, the better your chance of quitting the next time! So, don't give up! Go Cold [place]: Most ex-smokers quit cold turkey. Trying to cut back gradually doesn't seem to work as well, perhaps because it continues the smoking habit. Also, it is possible to fool yourself by inhaling more while smoking fewer cigarettes. This results in the same amount of nicotine in your body! Get Support: Support programs can make an important difference, especially for the heavy smoker. These groups offer lectures, methods to change your behavior and peer support. Call the free national Quitline for more information. 199-PSPN-SRL (757-951-2201). Low-cost or free programs are offered by many hospitals, local chapters of the [place] [employer] (062-811-7012) and the [place] [employer] (574-660-5870). Support at home is important too. Non-smokers can help by offering praise and encouragement. If the smoker fails to quit, encourage them to try again! Juuq-Nwd-Pxgrzan Medicines: For those who can't quit on their own, Nicotine Replacement Therapy (NRT) may make quitting much easier. Certain aids such as the nicotine patch, gum and lozenge are available without a prescription. However, it is best to use these under the guidance of your doctor. The skin patch provides a steady supply of nicotine to the body. Nicotine gum and lozenge gives temporary bursts of low levels of nicotine. Both methods take the edge off the craving for cigarettes. WARNING: If you feel symptoms of nicotine overdose, such as nausea, vomiting, dizziness, weakness, or fast heartbeat, stop using these and see your doctor. Prescription Medicines: After evaluating your smoking patterns and prior attempts at quitting, your doctor may offer a prescription medicine such as bupropion (Zyban, Wellbutrin), varenicline (Chantix, Champix), a niocotine inhaler or nasal spray. Each has its unique advantage and side effects which your doctor can review with you. Health Benefits Of Quitting: The benefits of quitting start right away and keep improving the longer you go without smokin minutes: blood pressure and pulse return to normal 8 hours: oxygen levels return to normal 2 days: ability to smell and taste begins to improve as damaged nerves start to regrow 2-3 weeks: circulation and lung function improves 1-9 months: decreased cough, congestion and shortness of breath; less tired 1 year: risk of heart attack decreases by half 5 years: risk of lung cancer decreases by half; risk of stroke becomes the same as a non-smoker For information about how to quit smoking, visit the following links: National Cancer [place] , Clearing the Air, Quit Smoking Today - an online booklet. http://www.smokefree.gov/pubs/clearing_the_air.pdf Smokefree.gov http://smokefree.gov/ QuitNet http://www.quitnet.com/ You have been given the following additional information: Smoking Cessation (Electronically signed by Dread Khalil Dr. 12/23/2016 15:28)
--- NOTE | 2016-12-23 16:09 | ED MED RECONCILIATION SUMMARY ---
Patient: DILEEP JIMENEZ Medication Reconciliation Report [facility] VisitID: [id number] [address] [place] [address] 41y, M Registration Date/Time: 12/23/2016 Weight: 87.0 kg Height/Length: 67 in. BMI: 30.1 ALLERGIES: PredniSONE The patient's Home Medications are listed below: CONTINUE TAKING THE FOLLOWING MEDICATIONS: Aubagio Oral (14 mg) 1 tablet, day CarBAMazepine Oral 600 mg, 2x a day Cymbalta Oral 90mg, Daily Lyrica Oral (300 mg) 1 capsule, daily OLANZapine Oral 15 mg, daily PriLOSEC Oral 20 mg, daily The source(s) of the original Home Medication information: patient The following Medications were given to the patient in the Emergency Department: Toradol [IM] IM 60 mg, administered: 12/23/2016 2:33:00 PM The following Medications were prescribed to the patient: Diclofenac 50 mg tablets: take 1 tablet orally every 8 hours as needed for pain or stiffness. Dispense thirty (30). No refill. -- Dread Khalil Dr.
--- NOTE | 2016-12-23 16:09 | ED MAR SUMMARY ---
..... Medication Administration Record [facility] [address] [place] [address] Patient: DILEEP JIMENEZ Visit ID: [id number] 41y, M Weight: 87.0 kg Height/Length: 67 in BMI: 30.1 ALLERGIES: PredniSONE Given 14:33 12/23/2016 Irving Martinez R.N. Medication Administered: TORADOL [IM] (KETOROLAC TROMETHAMINE), Dose: 60 mg IM. Medication Ordered: Toradol IM 60 mg (NOW).
--- NOTE | 2016-12-23 16:09 | ED MED RECONCILIATION SUMMARY ---
Patient: DILEEP JIMENEZ Medication Reconciliation Report [facility] VisitID: [id number] [address] [place] [address] 41y, M Registration Date/Time: 12/23/2016 Weight: 87.0 kg Height/Length: 67 in. BMI: 30.1 ALLERGIES: PredniSONE The patient's Home Medications are listed below: CONTINUE TAKING THE FOLLOWING MEDICATIONS: Aubagio Oral (14 mg) 1 tablet, day CarBAMazepine Oral 600 mg, 2x a day Cymbalta Oral 90mg, Daily Lyrica Oral (300 mg) 1 capsule, daily OLANZapine Oral 15 mg, daily PriLOSEC Oral 20 mg, daily The source(s) of the original Home Medication information: patient The following Medications were given to the patient in the Emergency Department: Toradol [IM] IM 60 mg, administered: 12/23/2016 2:33:00 PM The following Medications were prescribed to the patient: Diclofenac 50 mg tablets: take 1 tablet orally every 8 hours as needed for pain or stiffness. Dispense thirty (30). No refill. -- Dread Khalil Dr.
--- NOTE | 2016-12-23 16:09 | ED DISCHARGE INSTRUCTIONS ---
Patient: DILEEP JIMENEZ General Instructions [facility] VisitID: [id number] [place] [address] 41y, M Registration Date/Time: 12/23/2016 INSTRUCTIONS Do not smoke. Seek medical help to quit smoking. Your Current Medications: CONTINUE TAKING THE FOLLOWING MEDICATIONS: Aubagio Oral : Tablet 14 mg, 1 tablet day. CarBAMazepine Oral : 600 mg 2x a day. Cymbalta Oral : 90mg Daily. Lyrica Oral : Capsule 300 mg, 1 capsule daily. OLANZapine Oral : 15 mg daily. PriLOSEC Oral : 20 mg daily. Prescription Medications: Diclofenac 50 mg tablets: take 1 tablet orally every 8 hours as needed for pain or stiffness. Dispense thirty (30). No refill. Follow-up: Follow up with your doctor in about two days. Call for an appointment. Screening today revealed the patient's blood pressure to be in the pre-hypertensive range. The patient should follow up with a primary care provider for blood pressure management. ADDITIONAL INFORMATION How To Quit Smoking Smoking is one of the hardest habits to break. About half of all those who have ever smoked have been able to quit, and most of those (about 70%) who still smoke want to quit. Here are some of the best ways to stop smoking. Keep Trying: It takes most smokers about 8 tries before they are finally able to fully quit. So, the more often you try and fail, the better your chance of quitting the next time! So, don't give up! Go Cold [place]: Most ex-smokers quit cold turkey. Trying to cut back gradually doesn't seem to work as well, perhaps because it continues the smoking habit. Also, it is possible to fool yourself by inhaling more while smoking fewer cigarettes. This results in the same amount of nicotine in your body! Get Support: Support programs can make an important difference, especially for the heavy smoker. These groups offer lectures, methods to change your behavior and peer support. Call the free national Quitline for more information. 193-VKOM-NOI (353-327-4146). Low-cost or free programs are offered by many hospitals, local chapters of the [place] [employer] (847-711-6427) and the [place] [employer] (252-052-6063). Support at home is important too. Non-smokers can help by offering praise and encouragement. If the smoker fails to quit, encourage them to try again! Dzjw-Mjn-Jvqzfkg Medicines: For those who can't quit on their own, Nicotine Replacement Therapy (NRT) may make quitting much easier. Certain aids such as the nicotine patch, gum and lozenge are available without a prescription. However, it is best to use these under the guidance of your doctor. The skin patch provides a steady supply of nicotine to the body. Nicotine gum and lozenge gives temporary bursts of low levels of nicotine. Both methods take the edge off the craving for cigarettes. WARNING: If you feel symptoms of nicotine overdose, such as nausea, vomiting, dizziness, weakness, or fast heartbeat, stop using these and see your doctor. Prescription Medicines: After evaluating your smoking patterns and prior attempts at quitting, your doctor may offer a prescription medicine such as bupropion (Zyban, Wellbutrin), varenicline (Chantix, Champix), a niocotine inhaler or nasal spray. Each has its unique advantage and side effects which your doctor can review with you. Health Benefits Of Quitting: The benefits of quitting start right away and keep improving the longer you go without smokin minutes: blood pressure and pulse return to normal 8 hours: oxygen levels return to normal 2 days: ability to smell and taste begins to improve as damaged nerves start to regrow 2-3 weeks: circulation and lung function improves 1-9 months: decreased cough, congestion and shortness of breath; less tired 1 year: risk of heart attack decreases by half 5 years: risk of lung cancer decreases by half; risk of stroke becomes the same as a non-smoker For information about how to quit smoking, visit the following links: National Cancer [place] , Clearing the Air, Quit Smoking Today - an online booklet. http://www.smokefree.gov/pubs/clearing_the_air.pdf Smokefree.gov http://smokefree.gov/ QuitNet http://www.quitnet.com/ You have been given the following additional information: Smoking Cessation (Electronically signed by Dread Khalil Dr. 12/23/2016 15:28)
--- NOTE | 2016-12-23 16:09 | ED MAR SUMMARY ---
..... Medication Administration Record [facility] [address] [place] [address] Patient: DILEEP JIMENEZ Visit ID: [id number] 41y, M Weight: 87.0 kg Height/Length: 67 in BMI: 30.1 ALLERGIES: PredniSONE Given 14:33 12/23/2016 Irving Martinez R.N. Medication Administered: TORADOL [IM] (KETOROLAC TROMETHAMINE), Dose: 60 mg IM. Medication Ordered: Toradol IM 60 mg (NOW).
== END 2016-12-23 15:34 | disposition home or self-care (01) ==
LOC: ED SRH 13:45
DX: R09.1 Pleurisy (principal); Z79.899 Other long term (current) drug therapy; F17.210 Nicotine dependence, cigarettes, uncomplicated